=== PATIENT | female | born 1990 ===

== ENCOUNTER 2016-07-19 22:17 | Emergency (ER) | payer SELFPAY ==
[2016-07-19 22:41] LABS: URINE BILIRUBIN NEGATIVE (NEGATIVE); URINE BLOOD NEGATIVE (NEGATIVE); URINE COLOR Straw (YELLOW); URINE GLUCOSE (UA) NORMAL (Normal); URINE KETONE NEGATIVE (NEGATIVE); URINE LEUKOCYTE ESTERASE NEG Leu/uL (Negative); URINE PROTEIN NEGATIVE (NEGATIVE); URINE UROBILINOGEN NORMAL mg/dL (0.2-1.0); WBC URINE < 1 /hpf (0-5)
[2016-07-19] MEDS ORDERED: cefTRIAXone (Rocephin) 250 mg Inj IM STA (23:55)
[2016-07-20] MEDS ORDERED: Lidocaine 1% Inj (20ml) ONE (00:34)
--- NOTE | 2016-07-20 00:51 | C.PDOC ---
Time Seen by Provider: 07/19/16 23:35 Chief Complaint (Nursing): Abdominal Pain History Per: Patient, G[employer] Person History/Exam Limitations: language barrier Onset/Duration Of Symptoms: Days (1) Current Symptoms Are (Timing): Still Present Severity: Moderate Location Of Pain/Discomfort: Suprapubic Radiation Of Pain To:: Back Quality Of Discomfort: Unable To Describe, "Pain" Associated Symptoms: Nausea, Urinary Symptoms (?) Alleviating Factors: None Additional History Per: Prior Records Abnormal Vaginal Bleeding: No Past Medical History Reviewed: Historical Data, Nursing Documentation, Vital Signs Vital Signs: Last Vital Signs Temp 97.9 F 07/19/16 22:23 Pulse 107 H 07/19/16 22:23 Resp 16 07/19/16 22:23 BP 131/86 07/19/16 22:23 Pulse Ox 99 07/19/16 22:23 - Medical History PMH: No Chronic Diseases Surgical History: No Surg Hx Family History: States: Unknown Family Hx - Social History Hx Alcohol Use: No Hx Substance Use: No - Immunization History Hx Tetanus Toxoid Vaccination: No Hx Influenza Vaccination: No Hx Pneumococcal Vaccination: No Review Of Systems Except As Marked, All Systems Reviewed And Found Negative. Constitutional: Negative for: Fever, Weakness Cardiovascular: Negative for: Chest Pain Respiratory: Negative for: Shortness of Breath Gastrointestinal: Negative for: Diarrhea Genitourinary: Positive for: Dysuria, Pelvic Pain Musculoskeletal: Positive for: Back Pain (low). Negative for: Neck Pain Skin: Negative for: Rash Neurological: Negative for: Weakness, Numbness, Seizures, Altered Mental Status Physical Exam - Physical Exam Appears: Non-toxic, No Acute Distress Skin: Normal Color, Warm, Dry, No Rash Head: Atraumatic, Normacephalic Eye(s): bilateral: PERRL, EOMI Neck: Normal ROM, Supple Cardiovascular: Rhythm Regular Respiratory: Normal Breath Sounds, No Accessory Muscle Use Gastrointestinal/Abdominal: Soft, Tenderness (suprapubic), No Guarding, No Rebound Back: No CVA Tenderness Pelvic: No Vaginal Bleeding, Vaginal Discharge, Cervical Motion Tenderness, Adnexal Tenderness, Tender Uterus Extremity: Normal ROM Neurological/Psych: Oriented x3, Normal Motor, Normal Sensation ED Course And Treatment - Laboratory Results Urine POC: Negative O2 Sat by Pulse Oximetry: 99 Pulse Ox Interpretation: Normal Disposition Counseled Patient/Family Regarding: Studies Performed, Diagnosis, Need For Followup, Rx Given - Disposition Disposition: HOME/ ROUTINE Disposition Time: 00:50 Condition: IMPROVED Additional Instructions: Practice safe sex (always use condoms). Follow up with your [facility] [employer] within 1 week for further evaluation and treatment. Return to the ER if you develop fever, vomiting, worsening of symptoms or if you have any other concerns. Prescriptions: Doxycycline Hyclate 100 mg PO Q12 #28 tab Instructions: Pelvic Inflammatory Disease (ED) Print Language: FRENCH - Clinical Impression Clinical Impression: PID (acute pelvic inflammatory disease)
[2016-07-20 00:58] VITALS: BP 129/84; PULSE 76; RESP 18; TEMP 98.9; O2SAT 100
== END 2016-07-20 00:58 | disposition home or self-care (01) ==
LOC: C.ER 22:17
DX: N73.0 Acute parametritis and pelvic cellulitis (principal)
CPT/HCPCS: 81001; 87491; 87591; 96372; 99284; J0696